=== PATIENT | female | born 2000 | race Caucasian/White ===

== ENCOUNTER 2020-12-18 21:43 | Observation (INO) ==
--- OUTSIDE RECORDS SUMMARY | 2020-12-18 21:45 | External Medical Summary | Continuity of Care Document ---
:2000 Author Name Tami Wiggins, Provider Address Unavailable Unavailable , Care Team Providers Name Role Phone NonMNPG MSole, Provider Unavailable [email or web address] Unavailable Unavailable Unavailable Unavailable Unavailable Problems Abnormal ECG (794.31) (R94.31) Shortness of breath (786.05) (R06.02) Allergic rhinitis (477.9) (J30.9) Allergies and Adverse Reactions No Known Drug Allergies (Allergy) Medications ProAir HFA 108 (90 Base) MCG/ACT Inhalat ion Aerosol Solution; INHALE 2 PUFFS EVERY 4-6 HOURS NEEDED 8.5 GM Inhaler Refills: 0 Asmanex (120 Metered Doses) 220 MCG/INH Inhalation Aerosol Powder Breath Activated; inhale 2 puffs twice a day Refills: 0 Pseudoephedrine HCl - 30 MG Oral Tablet; TAKE 1 TABLET BY MOUTH EVERY 6 HOURS NEEDED Refills: 0 Procedures Procedures not documented Immunizations Immunizations not documented Social History - Smoking Status Never smoked tobacco Plan of Treatment Planned Observations Planned Goals not documented Results No Known Results Results not documented
--- OUTSIDE RECORDS SUMMARY | 2020-12-18 21:45 | External Medical Summary | Continuity of Care Document ---
:2000 Author Name Tami Wiggins, Provider Address Unavailable Unavailable , Care Team Providers Name Role Phone NonMNPG MSole, Provider Unavailable [email or web address] Unavailable Unavailable Unavailable Unavailable Unavailable Problems Allergic rhinitis (477.9) (J30.9) Shortness of breath (786.05) (R06.02) Abnormal ECG (794.31) (R94.31) Allergies and Adverse Reactions No Known Drug Allergies (Allergy) Medications ProAir HFA 108 (90 Base) MCG/ACT Inhalat ion Aerosol Solution; INHALE 2 PUFFS EVERY 4-6 HOURS NEEDED 8.5 GM Inhaler Refills: 0 Pseudoephedrine HCl - 30 MG Oral Tablet; TAKE 1 TABLET BY MOUTH EVERY 6 HOURS NEEDED Refills: 0 Asmanex (120 Metered Doses) 220 MCG/INH Inhalation Aerosol Powder Breath Activated; inhale 2 puffs twice a day Refills: 0 Procedures Procedures not documented Immunizations Immunizations not documented Social History - Smoking Status Never smoked tobacco Plan of Treatment Planned Observations Planned Goals not documented Results No Known Results Results not documented
--- NOTE | 2020-12-18 22:26 | Emergency Department Note ---
History of Present Illness General Chief complaint: Abdominal Pain Stated complaint: ABDOMINAL PAIN, VOMITING Time Seen by Provider: 12/18/20 22:06 History of Present Illness Maximum Pain Intensity: 9 This is a 20-year-old otherwise healthy female that presents to the emergency department via private vehicle with complaints of "abdominal pain, vomiting". The patient states that earlier today about 1 hour prior to arrival she began with sudden onset periumbilical abdominal pain followed by nausea and vomiting x1. Pain persist in the abdomen. She rates the pain currently as an 8/10. No aggravating or alleviating factors. She denies having pain like this before. She denies any fevers, chills, chest pain or shortness of breath. Patient does note a history of inverted T waves and slightly elongated QT. She states this has previously been worked up by cardiology. Home Medications Medication Instructions Recorded Confirmed Type albuterol sulfate [ProAir HFA] 2 puff INHALATION DIRECTED PRN 08/17/18 12/18/20 History sertraline 75 mg PO QAM 12/18/20 12/18/20 History Allergies Allergy/AdvReac Type Severity Reaction Status Date / Time No Known Allergies Allergy Verified 12/18/20 22:35 Past Med/Surg History Medical History Asthma No pertinent family history Surgical History No pertinent past surgical history Family History Other No pertinent family history in first degree relatives Social History Smoking Status: Never smoker Hx Alcohol Use: No Hx Substance Use: No Preferred Language: Kyrgyz Communication Ability: Effective Store Administrator Required: No Beliefs That Will Affect Care: None Current Living Situation: Other Current Living Situation Comment: Apartment with friends Other Information That Helps Us Care for You: No Feels Safe at Home: Yes Safety Concerns: Feels Safe At This Time Review of Systems A total of 10 systems reviewed and were otherwise negative Physical Exam Vital Signs Vital Signs - 24 hr 12/18/20 21:50 12/18/20 23:55 12/19/20 01:45 Temperature 36.8 C Temperature Source Temporal Artery Scan Pulse Rate 98 H Pulse Rate [Right] 70 84 Pulse Rhythm [Right] Regular Pulse Strength [Right] Normal Respiratory Rate 19 16 16 Respiratory Effort / Characteristics Non-Labored Non-Labored Spontaneous Non-Labored Spontaneous Respiratory Depth Normal Normal Normal Blood Pressure 123/77 Blood Pressure [Right Arm] 127/55 L 135/75 Blood Pressure Mean 92 Blood Pressure Mean [Right Arm] 79 95 Blood Pressure Position [Right Arm] Lying Pulse Oximetry 99 99 98 Oxygen Delivery Method Room Air Room Air Sepsis Recent Fever Within 48 Hours No Sepsis New/Unexplained Change in Mental Status No Sepsis Action Taken by Nursing No Action Required 12/19/20 03:17 Temperature Temperature Source Pulse Rate Pulse Rate [Right] 71 Pulse Rhythm [Right] Regular Pulse Strength [Right] Normal Respiratory Rate 16 Respiratory Effort / Characteristics Non-Labored Spontaneous Respiratory Depth Normal Blood Pressure Blood Pressure [Right Arm] 106/62 Blood Pressure Mean Blood Pressure Mean [Right Arm] 76 Blood Pressure Position [Right Arm] Pulse Oximetry 96 Oxygen Delivery Method Room Air Sepsis Recent Fever Within 48 Hours Sepsis New/Unexplained Change in Mental Status Sepsis Action Taken by Nursing VITAL SIGNS - Vital signs and nursing notes were reviewed. Stable and afebrile. GENERAL -20-year-old female appearing her stated age who is in no acute distress but appears to be in pain. Communicates well with provider and answers questions appropriately. SKIN - Without rashes. HEAD - NC/AT. EYES - Sclera anicteric. NECK - Neck with FROM. No nuchal rigidity. LUNGS - Chest wall symmetric without accessory muscle use, intercostals retractions, or central cyanosis. Normal vesicular breath sounds CTA B/L. No wheezes, rales, or rhonchi appreciated. CARDIAC - RRR with S1/S2. No murmur, rubs, or gallops appreciated. ABDOMEN - Abdominal contour normal without pulsations or visible masses. BS normoactive all four quadrants. No palpable masses, hepatosplenomegaly, or ascites noted. There is diffuse lower abdominal tenderness to palpation. Abdomen is soft and nonrigid. PSYCH - A&O, and cooperates fully with examiner. Pt is very pleasant and interacts well with examiner. Course Administered Medications Acetaminophen (Acetaminophen 325 Mg Tab) 650 mg PO Q4H PRN PRN Reason: pain/fever Stop: 01/18/21 06:01 Last Admin: 12/19/20 06:22 Dose: 650 mg Documented by: [id number] Sertraline HCl (Sertraline Hcl 50 Mg Tablet) 75 mg PO QAM MARTHA Stop: 01/18/21 08:59 Last Admin: 12/19/20 07:53 Dose: 75 mg Documented by: [id number] Discontinued Medications Cefoxitin Sodium (Mefoxin) 2,000 mg in 60 mls @ 100 mls/hr IV NOW STA Stop: 12/19/20 02:20 Last Infusion: 12/19/20 02:36 Dose: 0 mls/hr Documented by: [id number] Admin: 12/19/20 01:55 Dose: 100 mls/hr Documented by: [id number] Ioversol (Ioversol 100ml) 100 ml IV ONCE ONE Stop: 12/19/20 01:09 Last Admin: 12/19/20 01:08 Dose: 92 ml Documented by: [id number] Medical Decision Making Laboratory Data Result diagrams: 12/18/20 22:28 12/18/20 22:28 Lab Results 12/18/20 12/18/20 12/18/20 Range/Units 22:28 22:28 22:30 WBC 12.79 H (4.8-10.8) K/uL RBC 4.45 (4.2-5.4) M/uL Hgb 13.2 (12.0-16.0) g/dL Hct 38.9 (37-47) % MCV 87.4 (80-100) fL MCH 29.7 (25-34) pg MCHC 33.9 (32-36) g/dL RDW Std Deviation 39.5 (36.4-46.3) fL RDW Coeff of Lelia 12.3 (11.5-14.5) % Plt Count 204 (130-400) K/uL MPV 11.7 H (7.4-10.4) fL Immature Gran % (Auto) 0.3 % Neut % (Auto) 67.8 % Lymph % (Auto) 20.6 % Emanuel % (Auto) 9.2 % Eos % (Auto) 2.0 % Baso % (Auto) 0.1 % Neut # (Auto) 8.68 H (1.4-6.5) K/uL Lymph # (Auto) 2.63 (1.2-3.4) K/uL Emanuel # (Auto) 1.18 H (0.11-0.59) K/uL Eos # (Auto) 0.25 (0-0.5) K/uL Baso # (Auto) 0.01 (0-0.2) K/uL Immature Gran # (Auto) 0.04 H (0.00-0.02) K/uL Sodium 139 (136-145) mmol/L Potassium 4.0 (3.5-5.1) mmol/L Chloride 107 (98-107) mmol/L Carbon Dioxide 27 (21-32) mmol/L Anion Gap 5.0 (3-11) BUN 9 (7-18) mg/dl Creatinine 0.72 (0.6-1.2) mg/dl Est Cr Clr Drug Dosing 130.4 ml/min Est GFR ( Amer) 139.7 Est GFR (Non-Af Amer) 120.6 BUN/Creatinine Ratio 12.6 (10-20) Glucose 80 (70-99) mg/dl Calcium 8.9 (8.5-10.1) mg/dl Total Bilirubin 0.4 (0.2-1) mg/dl AST 12 L (15-37) U/L ALT 27 (12-78) U/L Alkaline Phosphatase 98 (45-117) U/L Total Protein 7.3 (6.4-8.2) gm/dl Albumin 4.2 (3.4-5.0) gm/dl Globulin 3.1 (2.5-4.0) gm/dl Albumin/Globulin Ratio 1.4 (0.9-2) Lipase 68 L (73-393) U/L Urine Color Yellow Urine Appearance Cloudy A (Clear) Urine pH 6.5 (4.5-7.5) Ur Specific [place] 1.019 (1.000-1.030) Urine Protein Negative (Negative) Urine Glucose (UA) Negative (Negative) Urine Ketones Negative (Negative) Urine Blood 1+ H (Negative) Urine Nitrite Negative (Negative) Urine Bilirubin Negative (Negative) Urine Urobilinogen Negative (Negative) Ur Leukocyte Esterase 2+ H (Negative) Urine WBC (Auto) 10-30 H (0-5) /hpf Urine RBC (Auto) 5-10 H (0-4) /hpf U Hyaline Cast (Auto) 5-10 H (0-5) /lpf U Epithel Cells (Auto) >30 H (0-5) /lpf Urine Bacteria (Auto) 2+ H (Negative) POC Ur Test (NEG) COVID-19 Eval Order SARS-CoV-2, RNA, NAAT (NEGATIVE) 12/18/20 12/19/20 12/19/20 Range/Units 22:30 01:45 01:45 WBC (4.8-10.8) K/uL RBC (4.2-5.4) M/uL Hgb (12.0-16.0) g/dL Hct (37-47) % MCV (80-100) fL MCH (25-34) pg MCHC (32-36) g/dL RDW Std Deviation (36.4-46.3) fL RDW Coeff of Lelia (11.5-14.5) % Plt Count (130-400) K/uL MPV (7.4-10.4) fL Immature Gran % (Auto) % Neut % (Auto) % Lymph % (Auto) % Emanuel % (Auto) % Eos % (Auto) % Baso % (Auto) % Neut # (Auto) (1.4-6.5) K/uL Lymph # (Auto) (1.2-3.4) K/uL Emanuel # (Auto) (0.11-0.59) K/uL Eos # (Auto) (0-0.5) K/uL Baso # (Auto) (0-0.2) K/uL Immature Gran # (Auto) (0.00-0.02) K/uL Sodium (136-145) mmol/L Potassium (3.5-5.1) mmol/L Chloride (98-107) mmol/L Carbon Dioxide (21-32) mmol/L Anion Gap (3-11) BUN (7-18) mg/dl Creatinine (0.6-1.2) mg/dl Est Cr Clr Drug Dosing ml/min Est GFR ( Amer) Est GFR (Non-Af Amer) BUN/Creatinine Ratio (10-20) Glucose (70-99) mg/dl Calcium (8.5-10.1) mg/dl Total Bilirubin (0.2-1) mg/dl AST (15-37) U/L ALT (12-78) U/L Alkaline Phosphatase (45-117) U/L Total Protein (6.4-8.2) gm/dl Albumin (3.4-5.0) gm/dl Globulin (2.5-4.0) gm/dl Albumin/Globulin Ratio (0.9-2) Lipase (73-393) U/L Urine Color Urine Appearance (Clear) Urine pH (4.5-7.5) Ur Specific [place] (1.000-1.030) Urine Protein (Negative) Urine Glucose (UA) (Negative) Urine Ketones (Negative) Urine Blood (Negative) Urine Nitrite (Negative) Urine Bilirubin (Negative) Urine Urobilinogen (Negative) Ur Leukocyte Esterase (Negative) Urine WBC (Auto) (0-5) /hpf Urine RBC (Auto) (0-4) /hpf U Hyaline Cast (Auto) (0-5) /lpf U Epithel Cells (Auto) (0-5) /lpf Urine Bacteria (Auto) (Negative) POC Ur Test NEG (NEG) COVID-19 Eval Order Covid19 IDNow [facility] SARS-CoV-2, RNA, NAAT NEGATIVE (NEGATIVE) Imaging Data Radiologist's Impression: CT ABDOMEN & PELVIS With Contrast: Liver, gallbladder, spleen, pancreas, adrenal glands, and kidneys are unremarkable. The proximal appendix is enlarged measuring 8.7 mm in diameter but without significant periappendiceal inflammation. Findings are equivocal for early acute appendicitis and clinical correlation is recommended. Right adnexal cyst measuring 5 cm. Small volume of hyperdense free pelvic fluid. Constellation of findings suggest ruptured hemorrhagic cyst. Uterus and urinary bladder are unremarkable. No acute osseous findings. Radiologist: Emili Camarillo M.D. Study ready at 01:11 and initial results transmitted at 01:21 MDM Narrative Patient was seen and evaluated as above in room A9. Review was performed of nursing notes and vital signs. After obtaining a thorough history and physical examination the above work up was performed. Patient presents to us today with atraumatic periumbilical/lower abdominal pain. On examination she appears nontoxic but appears to be in pain. She is tender in the lower abdomen. Not definitively right versus left. More of a diffuse pain. No history of abdominal surgeries. Options of care were discussed with the patient. IV access was established. Labs were drawn. I did offer to discuss today's presentation and plan of care with family and she respectfully declined. She declined pain medication or antiemetics. White blood cell count mildly elevated at 12.79 without significant anemia. No emergent metabolic disturbance. Urinalysis reveals contaminant versus developing UTI. UPT negative. Covid testing negative. Although the patient has not had abdominal pain for that long, it is felt that given her location of pain, leukocytosis, and level of pain that a CT scan of the abdomen and pelvis would be warranted. This was obtained. Results as above. Pain is likely from that of a ruptured hemorrhagic cyst however the appendix is abnormal in appearance. I did discuss this with the general surgical team who came to evaluate the patient. They recommended IV antibiotics . This was ordered. They recommended observation here in the hospital with [employer] consultation. I discussed this with the hospitalist. I did speak with Dr. Starr of [employer] and we discussed the case. We also discussed how adding an ultrasound would help to better characterize. I relayed this information to the admitting hospitalist team. Patient amenable to staying. Again offered to discuss this with her parents and she respectfully declined. Please refer to further documentation regarding her stay. While in the department, I personally reevaluated the patient several times and each time the patient was found to be resting and continued to respectfully declined pain medication. In the evaluation and treatment of this patient the following differential diagnoses were entertained: Diverticulitis, perforation, ovarian torsion, abscess, ectopic , ruptured cyst, appendicitis, among others. Impression & Plan Bilateral lower abdominal pain, Nausea & vomiting, Ovarian cyst Discharge Plan Visit Data Chief Complaint: Abdominal Pain Stated Complaint: ABDOMINAL PAIN, VOMITING ED Provider: Sly Whiting ED Midlevel Provider: Cam Berrios Discharge Problem: Bilateral lower abdominal pain, Nausea & vomiting, Ovarian cyst Patient Disposition: Admitted As Inpatient Condition: Good Discharge Instructions Interventions: ED Discharge Assessment Last Done: 12/19/20 05:40
[2020-12-18 22:39] LABS: Basophils # (auto) 0.01 K/uL (0-0.2); Basophils % (auto) 0.1 %; Eosinophils # (auto) 0.25 K/uL (0-0.5); Hematocrit (blood only) 38.9 % (37-47); Hemoglobin 13.2 g/dL (12.0-16.0); Immature Granulocytes # (auto) 0.04 K/uL (0.00-0.02); Immature Granulocytes % (auto) 0.3 %; Lymphocytes # (auto) 2.63 K/uL (1.2-3.4); Lymphocytes % (auto) 20.6 %; Mean Corpuscular Hemoglobin 29.7 pg (25-34); Mean Corpuscular Hgb Conc 33.9 g/dL (32-36); Mean Corpuscular Volume 87.4 fL (80-100); Mean Platelet Volume 11.7 fL (7.4-10.4); Monocytes # (auto) 1.18 K/uL (0.11-0.59); Monocytes % (auto) 9.2 %; Neutrophils # (auto) 8.68 K/uL (1.4-6.5); Neutrophils % (auto) 67.8 %; Platelet Count 204 K/uL (130-400); RDW Coefficient of Variation 12.3 % (11.5-14.5); RDW Standard Deviation 39.5 fL (36.4-46.3); Red Blood Count 4.45 M/uL (4.2-5.4); White Blood Count 12.79 K/uL (4.8-10.8)
[2020-12-18 22:40] LABS: Appearance Urine Cloudy (Clear); Bacteria Urine Automated 2+ (Negative); Bilirubin Urine Negative (Negative); Blood Urine 1+ (Negative); Color Urine Yellow; Epithelial Cell Urine Auto >30 /lpf (0-5); Glucose Urine UA Negative (Negative); Ketones Urine Negative (Negative); Leukocyte Esterase Urine 2+ (Negative); Nitrite Urine Negative (Negative); Protein Urine Negative (Negative); Specific Gravity Urine 1.019 (1.000-1.030); Urobilinogen Urine Negative (Negative); pH Urine 6.5 (4.5-7.5)
[2020-12-18 23:01] LABS: Albumin Level 4.2 gm/dl (3.4-5.0); BUN Creatinine Ratio 12.6 (10-20); Calcium 8.9 mg/dl (8.5-10.1); Creatinine Clr Calc Pharmacy 130.4 ml/min; Est GFR (African American) 139.7; Est GFR (Non-African American) 120.6
[2020-12-18 23:04] LABS: Albumin Globulin Ratio 1.4 (0.9-2); Bilirubin,Total 0.4 mg/dl (0.2-1); Globulin 3.1 gm/dl (2.5-4.0); Total Protein 7.3 gm/dl (6.4-8.2)
[2020-12-19] MEDS ORDERED: OPTIRAY 320 100ml IV ONE (01:08)
[2020-12-19] MEDS ORDERED: cefOXitin 2,000 MG/60 ML BAG IV STA (01:45)
--- NOTE | 2020-12-19 01:54 | History & Physical Report ---
Date of Service December 19, 2020 Assessment & Plan (1) Appendicitis: Due to CT scan findings as well as patient's clinical presentation we will proceed as follows: We will plan on performing a laparoscopic possible open appendectomy Antibiotics have been given in the emergency department in the form of cefoxitin Provide analgesics Provide antiemetics Covid test has been ordered and is pending. History of Present Illness Chief Complaint: Abdominal pain Primary Care Provider: [facility] This is a 20-year-old female who presented [facility] emergency department secondary abdominal pain. Patient noted that her abdominal pain started approximately 3 hours ago and is primarily located in the periumbilical area. Since arrival to the emergency department she is continues to have pain in the periumbilical area but is shifted somewhat to the right lower quadrant. She has associated nausea and vomiting but denies any fevers, shakes, chills. She notes that the pain is worse with movement and was worse on the car ride over to the hospital. She denies any palliative factors. She denies any diarrhea. In the emergency department the patient had a CT scan of the abdomen and pelvis that showed concern for dilated appendix which was felt to possibly represent an early appendicitis. She was also noted to have some fluid in the pelvis that could represent a ruptured adnexal cyst. CBC revealed her white blood cell count was elevated at 12.7. Her hemoglobin, hematocrit, and platelet count were noted to be within normal range. A chemistry profile showed her sodium, potassium, BUN, and creatinine were all within normal range. There is no elevation of her LFTs or lipase. test is negative. At the time of my interview the patient is resting comfortably in bed her pain is well controlled she was no distress. Dr. [id number]-old female with lower abdominal pain which came on somewhat rapidly this evening Her pain seems to be low abdomen and bilateral not specifically right or left Her menses are very sporadic and sometimes she does not have a period for 2 months She underwent CAT scan which showed mildly dilated appendix but no periappendiceal inflammation She does have a thick walled 5 cm right ovarian cyst which is somewhat central, suggestion on CT of a ruptured cyst On examination she does not have right lower quadrant pain but more lower central abdominal pain I think her pain is more related to her ovarian cyst rather than appendicitis-I would consider observing the patient and also Consider a WINERY WORKER evaluation We will continue to follow the patient Allergies Allergy/AdvReac Type Severity Reaction Status Date / Time No Known Allergies Allergy Verified 12/18/20 22:35 Home Medications Medication Instructions Recorded Confirmed Type albuterol sulfate [ProAir HFA] 2 puff INHALATION DIRECTED PRN 08/17/18 12/18/20 History sertraline 75 mg PO QAM 12/18/20 12/18/20 History Past Med/Surg History Medical History (Updated 12/19/20 @ 01:53 by Maikel Soto PA-C) Asthma Family History Other No pertinent family history in first degree relatives Social History Smoking Status: Never smoker Feels Safe at Home: Yes Review of Systems Constitutional: no fever and no chills Eyes: no diplopia Ear, Nose, Mouth, Throat: no ear pain Respiratory: no cough and no dyspnea Cardiovascular: no chest pain Gastrointestinal: + abdominal pain, + nausea and + vomiting Genitourinary: no dysuria Musculoskeletal: no back pain Integumentary: no rash Neurologic: no localized weakness Physical Exam Constitutional: well developed and well nourished; no acute distress Eyes: no conjunctival abnormality ENMT: Ears: no hearing impairment Neck: trachea midline Respiratory: normal respiratory effort, lungs clear to auscultation Cardiovascular: Rate/Rhythm: regular rate and regular rhythm Gastrointestinal (Abdomen): Abdomen is soft and nondistended. Bowel sounds are present. There is no rebound tenderness or guarding. Patient did have pain with palpation in the periumbilical and right lower quadrant with deep palpation. Musculoskeletal: No calf tenderness Skin: no rashes, warm and dry Neurologic: moves all extremities Psychiatric: A+Ox3, euthymic affect Results & Data Results & Data ([facility]) Vital Signs (Past 12 Hours) Vital Signs Temp Pulse Pulse Resp BP BP Pulse Ox 12/19/20 01:45 84 16 135/75 98 12/18/20 23:55 70 16 127/55 L 99 12/18/20 21:50 36.8 C 98 H 19 123/77 99 PG Care Time/CCT Total # of Minutes Spent Total Time Spent with Patient: Total time spent is greater than 50% in coordination of care (as documented) at patient's floor/unit and/or counseling patient: Coding Level of Care Code 43846 OBS Care - Level 3 Diagnoses Appendicitis K37
--- NOTE | 2020-12-19 03:41 | History & Physical Report ---
Date of Service December 19, 2020 Assessment & Plan (1) Abdominal pain: 20-year-old female admitted for abdominal pain, nausea and vomiting. Abdominal pain UTI vs appendicitis vs ovarian cyst rupture CT abdomen pelvis showing mild dilation of superior portion of the appendix at 8.7 mm in diameter but without significant periappendiceal inflammation. CT abdomen also showing right adnexal cyst measuring 5 cm with small volume of hyperdense free pelvic fluid, suggestion of ruptured hemorrhagic cyst Received 1 dose of cefoxitin in the emergency department, will switch to ceftriaxone for gram negative coverage. can broaden to zosyn if clinically worsening to include anerobes. Surgical team consulted: Recommending observation Can consider ultrasound of pelvis for better characterization of adnexal cyst Zofran as needed for nausea, Tylenol and ibuprofen for pain CBC elevated at 12, hemoglobin stable at 13.2, afebrile, not tachycardic, not hypotensive dvt ppx: low risk, ambulate ad devante fen/gi: NPO, sip with medsand chips code status: full code dispo: med/surg History of Present Illness 20-year-old female with no past medical history who presents to the emergency department for acute abdominal pain that started around 8:30 PM this evening. She states that it is a sharp stabbing constant pain in her right lower quadrant. She denies any improving factors, she says of the pain is worse when walking but otherwise denies any exacerbating factors. She also states that around the same time that the pain began she had some pain with urination. She denies burning with urination or increased frequency of urination. She has not tried anything to control the pain. She denies any past abdominal surgery. She did have an episode of emesis at home that was nonbloody and nonbilious. States that since she has had that episode she no longer feels nauseous. She also had 3 episodes of loose bowel movements at home but has not since arriving to the ER. These were nonmelanotic and nonbloody. She states she has a history of being on Depo-Provera control shots approximately 3 years ago and then stopped taking the shots. For approximately 6 months after that she was placed on low-dose estrogen control "for concern of ovarian cyst". She denies any history of diagnosis of PCOS or ovarian cyst to her knowledge. She denies any chance of being . She states her last period was approximately 3 months ago and that they are extremely irregular. Primary Care Provider: Rust Allergies Allergy/AdvReac Type Severity Reaction Status Date / Time No Known Allergies Allergy Verified 12/18/20 22:35 Home Medications Medication Instructions Recorded Confirmed Type albuterol sulfate [ProAir HFA] 2 puff INHALATION DIRECTED PRN 08/17/18 12/18/20 History sertraline 75 mg PO QAM 12/18/20 12/18/20 History amoxicillin-pot clavulanate 1 tab PO BID #10 tab 12/19/20 Rx [Augmentin] Past Med/Surg History Medical History Asthma No pertinent family history Surgical History No pertinent past surgical history Family History Other No pertinent family history in first degree relatives Social History Smoking Status: Never smoker Hx Alcohol Use: No Hx Substance Use: No Preferred Language: Serbian Communication Ability: Effective Physical Ther Required: No Beliefs That Will Affect Care: None Current Living Situation: Other Current Living Situation Comment: Apartment with friends Feels Safe at Home: Yes Assistive Devices: None Review of Systems Constitutional: no fever, no chills, no sweats, no fatigue and no weakness Respiratory: no cough and no dyspnea Cardiovascular: no chest pain, no lightheadedness and no edema Gastrointestinal: + abdominal pain, + nausea, + vomiting and + diarrhea/loose stools; no coffee ground emesis, no cramping, no constipation and no blood in stools Genitourinary: + dysuria and + abnormal periods; no difficulty urinating, no urinary frequency, no urinary hesitancy, no urinary urgency, no hematuria, no flank pain and no vaginal odor Physical Exam Physical Exam: Constitutional: Thin young adult female in no acute distress laying comfortably in bed HEENT: EOMI, PERRLA Cardio: Regular rate and rhythm, no murmurs gallops or rubs, normal S1-S2 Pulmonary: Clear to auscultation bilaterally, no wheezes rhonchi or rales, good air movement bilaterally GI: Normal bowel sounds, nondistended negative Villalpando sign, tender to palpation at both McBurney's point and suprapubically. No pain on left quadrants. No rebound or guarding Extremities: No peripheral edema 2+ peripheral pulses Neuro: A&O x3, moving all extremities, Results & Data Results & Data ([facility]) Vital Signs (Past 12 Hours) Vital Signs Temp Pulse Pulse Resp BP BP Pulse Ox 12/19/20 03:17 71 16 106/62 96 12/19/20 01:45 84 16 135/75 98 12/18/20 23:55 70 16 127/55 L 99 12/18/20 21:50 36.8 C 98 H 19 123/77 99 Laboratory Results WBC 12.79 K/uL (4.8-10.8) H 12/18/20 22:28 RBC 4.45 M/uL (4.2-5.4) 12/18/20 22:28 Hgb 13.2 g/dL (12.0-16.0) 12/18/20 22:28 Hct 38.9 % (37-47) 12/18/20 22:28 MCV 87.4 fL (80-100) 12/18/20 22: MCH 29.7 pg (25-34) 12/18/20 22:28 MCHC 33.9 g/dL (32-36) 12/18/20 22:28 RDW Std Deviation 39.5 fL (36.4-46.3) 12/18/20 22:28 RDW Coeff of Lelia 12.3 % (11.5-14.5) 12/18/20 22:28 Plt Count 204 K/uL (130-400) 12/18/20 22:28 MPV 11.7 fL (7.4-10.4) H 12/18/20 22:28 Immature Gran % (Auto) 0.3 % 12/18/20 22: Neut % (Auto) 67.8 % 12/18/20 22:28 Lymph % (Auto) 20.6 % 12/18/20 22:28 Davie % (Auto) 9.2 % 12/18/20 22: Eos % (Auto) 2.0 % 12/18/20 22: Baso % (Auto) 0.1 % 12/18/20: Neut # (Auto) 8.68 K/uL (1.4-6.5) H 12/18/20: Lymph # (Auto) 2.63 K/uL (1.2-3.4) 12/18/20: Davie # (Auto) 1.18 K/uL (0.11-0.59) H 12/18/20: Eos # (Auto) 0.25 K/uL (0-0.5) 12/18/20: Baso # (Auto) 0.01 K/uL (0-0.2) 12/18/20: Immature Gran # (Auto) 0.04 K/uL (0.00-0.02) H 12/18/20: Sodium 139 mmol/L (136-145) 12/18/20: Potassium 4.0 mmol/L (3.5-5.1) 12/18/20: Chloride 107 mmol/L (98-107) 12/18/20: Carbon Dioxide 27 mmol/L (21-32) 12/18/20: Anion Gap 5.0 (3-11) 12/18/20: BUN 9 mg/dl (7-18) 12/18/20: Creatinine 0.72 mg/dl (0.6-1.2) 12/18/20: Est Cr Clr Drug Dosing 130.4 ml/min 12/18/20: Est GFR ( Amer) 139.7 12/18/20: Est GFR (Non-Af Amer) 120.6 12/18/20: BUN/Creatinine Ratio 12.6 (10-20) 12/18/20: Glucose 80 mg/dl (70-99) 12/18/20: Calcium 8.9 mg/dl (8.5-10.1) 12/18/20: Total Bilirubin 0.4 mg/dl (0.2-1) 12/18/20: AST 12 U/L (15-37) L 12/18/20: ALT 27 U/L (12-78) 12/18/20:28 Alkaline Phosphatase 98 U/L (45-117) 12/18/20 22: Total Protein 7.3 gm/dl (6.4-8.2) 12/18/20 22: Albumin 4.2 gm/dl (3.4-5.0) 12/18/20: Globulin 3.1 gm/dl (2.5-4.0) 12/18/20: Albumin/Globulin Ratio 1.4 (0.9-2) 12/18/20: Lipase 68 U/L (73-393) L 12/18/20 22: Urine Color Yellow 12/18/20 22: Urine Appearance Cloudy (Clear) A 12/18/20: Urine pH 6.5 (4.5-7.5) 12/18/20 22: Ur Specific Hammond 1.019 (1.000-1.030) 12/18/20 22:30 Urine Protein Negative (Negative) 12/18/20 22: Urine Glucose (UA) Negative (Negative) 12/18/20: Urine Ketones Negative (Negative) 12/18/20 22:30 Urine Blood 1+ (Negative) H 12/18/20 22:30 Urine Nitrite Negative (Negative) 12/18/20: Urine Bilirubin Negative (Negative) 12/18/20 22: Urine Urobilinogen Negative (Negative) 12/18/20 22:30 Ur Leukocyte Esterase 2+ (Negative) H 12/18/20 22:30 Urine WBC (Auto) 10-30 /hpf (0-5) H 12/18/20 22:30 Urine RBC (Auto) 5-10 /hpf (0-4) H 12/18/20 22:30 U Hyaline Cast (Auto) 5-10 /lpf (0-5) H 12/18/20 22:30 U Epithel Cells (Auto) >30 /lpf (0-5) H 12/18/20 22:30 Urine Bacteria (Auto) 2+ (Negative) H 12/18/20 22:30 POC Ur Test NEG (NEG) 12/18/20 22:30 COVID-19 Eval Order Covid19 IDNow [facility] 12/19/20 01:45 SARS-CoV-2, RNA, NAAT NEGATIVE (NEGATIVE) 12/19/20 01:45 Supervising Physician Co-Signing Physician Notes Attending addendum: I have physically seen this patient, have supervised the medical residents activities, and agree with the H&P unless as otherwise noted. Assessment and Plan: Abdominal pain- Treat urinary tract infection follow urine culture and sensitivities and placed on ceftriaxone 1 g IV daily Differential also includes, per CT reading, ovarian cyst rupture, early mild appendicitis. Patient has been assessed by general surgery in the ED, who felt that the patient was not a surgical candidate at this time Zofran 4 mg IV every 6 hours as needed Tylenol as needed mild pain or fever Consult gynecology regarding ovarian cyst as cause of symptoms. Remaining orders and notations as noted Resident Activity Tracking Resident Involvement: Resident Care Provided Care Provided: Adult Hospital Medicine
[2020-12-19] MEDS ORDERED: ACETAMINOPHEN 325 MG TAB PO PRN (06:02)
[2020-12-19] MEDS ORDERED: IBUPROFEN 600 MG TAB PO PRN (06:02)
[2020-12-19] MEDS ORDERED: ONDANSETRON INJ 2 MG/ML 2 ML VIAL IV PRN (06:02)
[2020-12-19] MEDS ORDERED: ALUMINUM/MAGNESIUM SUSP 30 ML UDC PO PRN (06:02)
[2020-12-19] MEDS ORDERED: POLYETHYLENE (MIRALAX) 17 GM PACK PO PRN (06:02)
[2020-12-19] MEDS ORDERED: MAGNESIUM HYDROXIDE SUSP 30 ML UDC PO PRN (06:02)
--- NOTE | 2020-12-19 07:53 | Hospitalist Progress Note ---
Date of Service December 19, 2020 Assessment & Plan (1) Abdominal pain: 20-year-old female admitted for abdominal pain, nausea and vomiting. Abdominal pain UTI vs appendicitis vs ovarian cyst rupture CT abdomen pelvis showing mild dilation of superior portion of the appendix at 8.7 mm in diameter but without significant periappendiceal inflammation. CT abdomen also showing right adnexal cyst measuring 5 cm with small volume of hyperdense free pelvic fluid, suggestion of ruptured hemorrhagic cyst Received 1 dose of cefoxitin in the emergency department, will switch to ceftriaxone for gram negative coverage. can broaden to zosyn if clinically worsening to include anerobes. Surgical team consulted: Recommending observation Can consider ultrasound of pelvis for better characterization of adnexal cyst Zofran as needed for nausea, Tylenol and ibuprofen for pain CBC elevated at 12, hemoglobin stable at 13.2, afebrile, not tachycardic, not hypotensive dvt ppx: low risk, ambulate ad devante fen/gi: NPO, sip with medsand chips code status: full code dispo: med/surg Admission and Anticipated Discharge Date Admission Date: December 19, 2020 Results & Data Results & Data ([facility]) Vital Signs (Past 12 Hours) Vital Signs Temp Pulse Pulse Pulse Resp BP BP 12/19/20 07:41 98.4 F 70 16 104/64 12/19/20 06:02 97.9 F 71 16 124/76 12/19/20 05:12 69 16 106/64 12/19/20 03:17 71 16 106/62 12/19/20 01:45 84 16 135/75 12/18/20 23:55 70 16 127/55 L 12/18/20 21:50 98.2 F 98 H 19 123/77 Pulse Ox 12/19/20 07:41 98 12/19/20 06:02 94 12/19/20 05:12 98 12/19/20 03:17 96 12/19/20 01:45 98 12/18/20 23:55 99 12/18/20 21:50 99 PG Care Time/CCT Total # of Minutes Spent Total Time Spent with Patient: Total time spent is greater than 50% in coordination of care (as documented) at patient's floor/unit and/or counseling patient: Coding Diagnoses Abdominal pain R10.9
--- NOTE | 2020-12-19 08:05 | CT Scan Report ---
CT SCAN OF THE ABDOMEN AND PELVIS WITH IV CONTRAST CLINICAL HISTORY: Periumbilical abdominal pain. Vomiting. COMPARISON STUDY: No priors. TECHNIQUE: Following the IV administration of 92 cc of Optiray 320, CT scan of the abdomen and pelvi s is performed from the lung bases to the proximal femora. Images are reviewed in the axial, sagittal , and coronal planes. IV contrast was administered without complication. Oral contrast was utilized. A dose lowering technique was utilized adhering to the principles of ALARA. CT DOSE: 465.81 mGy.cm FINDINGS: Lung bases: The heart is normal in size and without pericardial effusion. The lung bases are clear. Liver: The contrast-enhanced liver is normal in size, contour, and attenuation. There is no intrahepa tic biliary ductal dilatation. The hepatic veins and portal veins are patent. Gallbladder: Unremarkable. Spleen: Normal in size and attenuation. Pancreas: Unremarkable. Adrenal glands: Unremarkable. Kidneys: The contrast enhanced kidneys are normal in size and without hydronephrosis. The kidneys enh ance symmetrically. Abdominal vasculature: The abdominal aorta is normal in course and caliber. Bowel: There is no bowel obstruction. Enteric contrast reaches the right colon. There is mild colonic fecal retention. The proximal appendix is mildly dilated measuring up to 8 mm as seen on image #267. The distal appendix is normal in caliber. There is no surrounding inflammation. Peritoneum: There is no intraperitoneal free air or abdominal ascites. There is a small fat-containin g umbilical hernia. Lymphadenopathy: None. Pelvic viscera: The bladder and uterus are normal as visualized. There is a 4.4 cm minimally complex right ovarian cyst with mild surrounding infiltration. A small volume of complex free fluid is noted in the cul-de-sac. Additional small follicles are seen in the left ovary. Skeletal structures: No lytic or blastic lesions are seen. A bone island is incidentally noted in the right sacrum. Sclerotic change is seen in the sacroiliac joints. IMPRESSION: 1. There is a 4.4 cm complex right ovarian cyst with mild surrounding inflammation. Additionally, the re is a small volume of complex free fluid in the cul-de-sac. Findings are typical for a rupturing he morrhagic cyst and clinical correlation will be required. must also be excluded. These find ings could be further assessed with pelvic ultrasound if clinically warranted. 2. The proximal appendix is mildly dilated measuring up to 8 mm. The distal appendix is normal in yeni iber and there is no significant surrounding inflammation. Findings are considered low suspicion for acute appendicitis but this is not completely excluded. If there is strong clinical concern for acute appendicitis consider short-term CT follow-up for reassessment. 3. Additional findings as above. ACT 112: Negative or not required by law. Electronically signed by: Sly Bullock M.D. 12/19/2020 8:03 AM
[2020-12-19] MEDS ORDERED: SERTRALINE HCL 50 MG TABLET PO SCH (09:00)
--- NOTE | 2020-12-19 10:34 | Surgery Progress Note ---
Date of Service December 19, 2020 Assessment & Plan (1) Abdominal pain: Patient has taken minimal pain medication only acetaminophen It does not appear she has worsening right lower quadrant pain Plan is to check a transvaginal ultrasound Follow-up in the ANIMAL HEALTH TECHNICIAN clinic Could send her home on antibiotics-there is always the possibility she could have it have very early mild appendicitis Can follow her in the surgical clinic Admission and Anticipated Discharge Date Admission Date: December 19, 2020 Subjective Patient is awake and alert with a good affect Her vital signs are stable she is afebrile She has minimal pain Review of Systems Review of Systems: All systems reviewed & are unremarkable except as noted in HPI & below Physical Exam Physical Exam: Patient's abdomen is soft she has no pain to mild palpation although if you push deep in the right central lower abdomen she does have some discomfort Certainly no peritoneal irritation Constitutional: well developed and well nourished; no acute distress Eyes: + anicteric sclerae Respiratory: normal respiratory effort; no respiratory distress Cardiovascular: Rate/Rhythm: regular rate Gastrointestinal (Abdomen): Percussion/Palpation: abdomen soft Musculoskeletal: Gait: normal gait Skin: no rashes, warm and dry Neurologic: awake Psychiatric: Orientation: alert Results & Data ([facility]) Vital Signs (Past 12 Hours) Vital Signs Temp Pulse Pulse Resp BP Pulse Ox 12/19/20 07:41 36.9 C 70 16 104/64 98 12/19/20 06:02 36.6 C 71 16 124/76 94 12/19/20 05:12 69 16 106/64 98 12/19/20 03:17 71 16 106/62 96 12/19/20 01:45 84 16 135/75 98 12/18/20 23:55 70 16 127/55 L 99 PG Care Time/CCT Total # of Minutes Spent Total Time Spent with Patient: Total time spent is greater than 50% in coordin ation of care (as documented) at patient's floor/unit and/or counseling patient: Coding Level of Care Code 14645 Subseq Hosp Care Lvl 3 Diagnoses Abdominal pain R10.9
--- NOTE | 2020-12-19 14:04 | Ultrasound Report ---
PELVIC ULTRASOUND, TRANSABDOMINAL HISTORY: eval for ovarian torsion COMPARISON: None. FINDINGS: Uterus: 7.0 x 3.8 x 4.5 cm. No uterine masses. Endometrial stripe: 1 cm in thickness. Right ovary: There is a dominant 5.7 cm slightly complex cyst within the right ovary. This appears to contain a few thin septations and internal echoes suggestive of a hemorrhagic cyst. There is normal color flow within the surrounding ovarian parenchyma. Left ovary: Normal in size and demonstrates normal color flow. Miscellaneous:Trace pelvic free fluid. IMPRESSION: 1. A 5.7 cm slightly complex cyst within the right ovary. This favors a hemorrhagic cyst. Follow-up p elvic ultrasound in 6-8 weeks is recommended to ensure resolution. 2. Normal uterus and left ovary. ACT 112: Negative or not required by law. Electronically signed by: Ok Hinojosa M.D. 12/19/2020 2:02 PM
--- NOTE | 2020-12-19 16:06 | Discharge Summary ---
Date of Service December 19, 2020 Admission HPI Per Admitting Provider This is a 20-year-old female who presented [facility] emergency department secondary abdominal pain. Patient noted that her abdominal pain started approximately 3 hours ago and is primarily located in the periumbilical area. Since arrival to the emergency department she is continues to have pain in the periumbilical area but is shifted somewhat to the right lower quadrant. She has associated nausea and vomiting but denies any fevers, shakes, chills. She notes that the pain is worse with movement and was worse on the car ride over to the hospital. She denies any palliative factors. She den ies any diarrhea. In the emergency department the patient had a CT scan of the abdomen and pelvis that showed concern for dilated appendix which was felt to possibly represent an early appendicitis. She was also noted to have some fluid in the pelvis that could represent a ruptured adnexal cyst. CBC revealed her white blood cell count was elevated at 12.7. Her hemoglobin, hematocrit, and platelet count were noted to be within normal range. A chemistry profile showed her sodium, potassium, BUN, and creatinine were all within normal range. There is no elevation of her LFTs or lipase. test is negative. At the time of my interview the patient is resting comfortably in bed her pain is well controlled she was no distress. Dr. [id number]-old female with lower abdominal pain which came on somewhat rapidly this evening Her pain seems to be low abdomen and bilateral not specifically right or left Her menses are very sporadic and sometimes she does not have a period for 2 mon ths She underwent CAT scan which showed mildly dilated appendix but no periappendiceal inflammation She does have a thick walled 5 cm right ovarian cyst which is somewhat central, suggestion on CT of a ruptured cyst On examination she does not have right lower quadrant pain but more lower central abdominal pain I think her pain is more related to her ovarian cyst rather than appendicitis-I would consider observing the patient and also Consider a FIELD MAP TECHNICIAN evaluation We will continue to follow the patient Principal Diagnosis hemorrhagic ovarian cyst abnormal appendix Discharge Exam The patient appeared well Vital signs as documented. Lungs are clear to auscultation and appear unlabored Cardiac exam, Rhythm is regular.. No murmurs, rubs or gallops. Abdominal exam reveals normal bowel sounds, soft only mildly tender to deep palpation Extremities are nonedematous and both pedal pulses are normal. Neurologic exam is alert and oriented, no focal loss of strength or sensation Skin is without bruises or rashes Psychologically is without concerns for anxiety or depression. Discharge Data Allergies Allergy/AdvReac Type Severity Reaction Status Date / Time No Known Allergies Allergy Verified 12/18/20 22:35 Consultations 12/19/20 02:37 ED Decision to Admit Stat Ordered Studies 12/18/20 22:25 CT abd pelvis oral and IV con Urgent 12/19/20 13:30 US pelvic complete Routine Hospital Course (1) Abdominal pain: 20-year-old female admitted for abdominal pain, nausea and vomiting. Abdominal pain UTI vs appendicitis vs ovarian cyst rupture CT abdomen pelvis showing mild dilation of superior portion of the appendix at 8.7 mm in diameter but without significant periappendiceal inflammation. CT abdomen also showing right adnexal cyst measuring 5 cm with small volume of hyperdense free pelvic fluid, suggestion of ruptured hemorrhagic cyst Transabdominal pelvic ultrasound 12/19/2020 IMPRESSION: 1. A 5.7 cm slightly complex cyst within the right ovary. This favors a hemo rrhagic cyst. Follow-up pelvic ultrasound in 6-8 weeks is recommended to ensure resolution. 2. Normal uterus and left ovary. Patient was discharged on Augmentin for 5 days she said she used previously with Tylenol ibuprofen SUPERVISOR OF INSTRUCTION follow-up and she is recommended to follow-up with [facility] Total Time Total Time Spent Total Time Spent (In Minutes): Discharge 30 other 1 observational discharge Discharge Plan Discharge Items Patient Disposition: Home - Self-Care Reason For Visit: ABDOMINAL PAIN Discharge Diagnosis: hemorrhagic ovarian cyst with pain abnormal appendix Condition on Discharge: Good Activity: Per Instructions section Activity Comment: please avoid ballistic exercises until you are followed up by pcp or gyne Non-emergency contact: Primary Care Provider and Farm Operator Call non-emergency contact if: you have any medication questions, your symptoms worsen and your temperature is above 101 Follow-up/Referrals: [facility] [Primary Care Provider] - Diet: Regular Addtl Attending Provider Instructions: It is felt that the primary cause for your abdominal pain a hemorrhagic ovarian cyst, this should rupture on its own and heal. Please follow up with Gynecology to discuss your irregular menses and have an examination to see if cyst is resolved You did have a mildly abnormal appendix on CT scan, the surgeon foot and ankle surgeon did not feel that you have acute appendicitis, he does recommend a course of outpt antibiotics you may use tylenol or ibuprofen for pain, and if you develop worsened pain or a fever please return for re evaluation Pending Studies at Discharge: No Stand-Alone Forms: [facility], Smoking Cessation Medications and DC Order Prescriptions: New amoxicillin-pot clavulanate [Augmentin] 875-125 mg tablet 1 tab PO BID Qty: 10 RF: 0 Continued albuterol sulfate [ProAir HFA] 90 mcg/actuation Hfa Aerosol Inhaler 2 puff INHALATION DIRECTED PRN (Reason: Shortness Of Breath Or Wheezing) RF: 0 sertraline 25 mg tablet 75 mg PO QAM RF: 0 Discharge Orders: Discharge Order (Routine); Ordered 12/19/20 Ordered By: Fernando Caballero Admission Data Admit Date/Time: 12/19/20 03:55 Attending Provider: Fernando Caballero Admit Provider: Chanda Mcgee Primary Care Provider: [facility] Other Providers: Keshawn De León Other Interventions: Discharge Summary Assessment (RN) Last Done: 12/19/20 15:59 Coding Level of Care Code 30210 OBS Care - Discharge Diagnoses Abdominal pain R10.9
--- NOTE | 2020-12-20 05:38 | Billing Data ---
Date of Service December 20, 2020 Coding Level of Care Code 31162 OBS Care - Level 3
== END 2020-12-19 16:59 | disposition home or self-care (01) ==
LOC: ED 21:43 → 3W 21:43 → SUATTDRO 12-19 03:55 → 3W 12-19 05:40